=== PATIENT | male | born 1995 | race Caucasian/White ===

== ENCOUNTER 2021-01-20 15:10 | Emergency (ER) | payer OTHER, SELFPAY ==
--- NOTE | ~2021-01-20 | CT_ITS ---
EXAMINATION: CT HEAD WITHOUT CONTRAST CLINICAL INFORMATION: Right facial and right tongue numbness. Headache COMPARISON: None TECHNIQUE: Contiguous axial imaging was performed from the skull base to vertex without intravenous administration of contrast. This CT examination was performed using dose optimization techniques as appropriate, variously including the following: *Automated exposure control *Adjustment of mA and/or kV according to patient size (this includes techniques or standardized protocols for targeted exams where dose is matched to indication/reason for exam; i.e. extremities or head) *Use of iterative reconstruction technique DLP: 744 mGy-cm FINDINGS: There is no evidence of acute intracranial hemorrhage or territorial infarction. No abnormal mass effect or midline shift is seen. Hernandes to white matter differentiation is well preserved. No extra-axial fluid collections are identified. The ventricles are normal in size. There is no abnormal attenuation within the brain parenchyma. The osseous structures and soft tissues are normal. The mastoid air cells and visualized portions of the paranasal sinuses are well aerated. CT/CT head/brain wo con IMPRESSION: No acute intracranial process seen.
[2021-01-20 15:31] VITALS: BP 139/76; PULSE 96; RESP 18; TEMP 37.6; O2SAT 97; BMI 21.6
--- NOTE | 2021-01-20 17:18 | ECG_ITS ---
Test Reason : DIZZINESS Blood Pressure : / mmHG Vent. Rate : 080 BPM Atrial Rate : 080 BPM P-R Int : 152 ms QRS Dur : 078 ms QT Int : 350 ms P-R-T Axes : 069 051 048 degrees QTc Int : 403 ms Normal sinus rhythm with sinus arrhythmia Normal ECG No previous ECGs available Referred By: Rosa Samaniego Electronically Signed By:REJI DOCKERY
--- NOTE | 2021-01-20 17:22 | ED.GENADULT ---
HPI - General Adult General Chief complaint: Dental/Oral <DARCY Combs - Last Filed: 01/20/21 17:35> Stated complaint: dental numbness <DARCY Combs Last Filed: 01/20/21 17:35> Time Seen by Provider: 01/20/21 16:55 <DARCY Combs Last Filed: 01/20/21 17:35> Source: patient <DARCY Combs Last Filed: 01/20/21 17:35> Mode of arrival: ambulatory <DARCY Combs Last Filed: 01/20/21 17:35> History of Present Illness HPI narrative: 25-year-old male with past medical history of cigarette smoking presenting to the ED complaining of 2 weeks of decreased p.o. intake, headache, intermittent nausea, 1 episode of emesis, and now with right-sided ear muffled hearing, right-sided facial/lower lip and tongue numbness. Denies fever, chills, visual change/loss, CP/SOB, abdominal pain, recent travel, history of blood clots <DARCY Combs - Last Filed: 01/20/21 17:35> Onset (ago): week(s) <DARCY Combs Last Filed: 01/20/21 17:35> Related Data Home medications: Home Medications Medication Instructions Recorded Confirmed No Known Home Meds 01/20/21 01/20/21 <DARCY Combs - Last Filed: 01/20/21 17:35> Allergies/adverse reactions: Allergies Allergy/AdvReac Type Severity Reaction Status Date / Time No Known Allergies Allergy Verified 01/20/21 15:39 <DARCY Combs Last Filed: 01/20/21 17:35> Review of Systems Review of Systems: Constitutional: No Fever, + Chills, + Fatigue, No Malaise ENT/Mouth: + Hearing loss, No Ear Pain, No Nasal Congestion, No sore throat, No Rhinorrhea, No Swallowing Difficulty Eyes: No Eye Pain, No Redness, No Vision Changes Cardiovascular: No Chest Pain, No SOB, No Edema Respiratory: No Cough, No Dyspnea Gastrointestinal: + Nausea, + Vomiting, No Constipation, No Abdominal pain Musculoskeletal: No joint pain, No Myalgias, No Joint Swelling Skin: No Skin Lesions, No rash Neuro: No Weakness, + Numbness, + Paresthesias, No Loss of Consciousness, No Dizziness, + Headache <DARCY Combs - Last Filed: 01/20/21 17:35> Yes all other systems are reviewed and are negative <DARCY Combs - Last Filed: 01/20/21 17:35> Neurologic: Denies Abnormal speech present and Denies Sensory deficit (Neuro) <DARCY Combs - Last Filed: 01/20/21 17:35> [facility] Past Medical History Attestation statement: The following information was validated with the patient. <DARCY Combs - Last Filed: 01/20/21 17:35> Medical History: Medical History (Updated 01/20/21 @ 20:33 by DARCY Ken) No acute medical problems <DARCY Combs - Last Filed: 01/20/21 17:35> Surgical History: Surgical History (Updated 01/20/21 @ 15:38 by Fior Goss) No history of previous surgery <DARCY Combs - Last Filed: 01/20/21 17:35> Social History Social History: Social History Advance Directives: No Advance Directives Information Provided: No <DARCY Combs - Last Filed: 01/20/21 17:35> Physical Exam Vital Signs: Vital Signs: Last Vital Signs Temp 99.2 F 01/20/21 19:11 Pulse 76 01/20/21 19:11 Resp 17 01/20/21 19:11 BP 121/76 01/20/21 19:11 Pulse Ox 99 01/20/21 19:11 Body Mass Index 21.6 <DARCY Combs - Last Filed: 01/20/21 17:35> Vital Signs: Last Vital Signs Temp 99.2 F 01/20/21 19:11 Pulse 76 01/20/21 19:11 Resp 17 01/20/21 19:11 BP 121/76 01/20/21 19:11 Pulse Ox 99 01/20/21 19:11 Body Mass Index 21.6 <DARCY Ken - Last Filed: 01/20/21 20:35> Const: General: cooperative, healthy appearing, comfortable and no acute distress <Rosa Samaniego [place] - Last Filed: 01/20/21 17:35> Orientation/consciousness: patient oriented x3 <Rosa Samaniego [place] - Last Filed: 01/20/21 17:35> Limitations: no limitations <Rosa Samaniego [place] - Last Filed: 01/20/21 17:35> HENMT: Head: Yes normal to inspection and Yes atraumatic <Rosa Samaniego [place] - Last Filed: 01/20/21 17:35> Ears: hearing grossly normal bilaterally, external ears normal and TM's normal bilaterally <Rosa Samaniego [place] - Last Filed: 01/20/21 17:35> General nose exam: Normal external nose present <Rosa Samaniego [place] - Last Filed: 01/20/21 17:35> Face and sinus: Yes normal facial exam <Rosa Samaniego [place] - Last Filed: 01/20/21 17:35> Mouth: Normal oral and palatal mucosa present and tongue normal <Rosa Samaniego [place] - Last Filed: 01/20/21 17:35> Throat: Yes posterior oropharynx normal, Yes tonsils normal, Yes uvula midline, No uvula laterally displaced and No uvular edema <Rosa Samaniego [place] - Last Filed: 01/20/21 17:35> Eyes: General: appearance normal, both eyes and all related structures <Rosa Samaniego [place] - Last Filed: 01/20/21 17:35> Pupils: Equal, round and reactive pupils present <Rosa Samaniego [place] - Last Filed: 01/20/21 17:35> EOM: EOMs intact bilaterally <Rosa Samaniego [place] - Last Filed: 01/20/21 17:35> Neck: Neck: Yes normal visual inspection, Yes full ROM and Yes no lymphadenopathy <Rosa Samaniego [place] - Last Filed: 01/20/21 17:35> Resp: Effort & Inspection: normal respiratory effort <DARCY Combs - Last Filed: 01/20/21 17:35> Auscultation: clear to auscultation bilaterally, no rales and no wheezes <DARCY Combs - Last Filed: 01/20/21 17:35> Cardio: Rate: regular rate <Rosa Samaniego [place] - Last Filed: 01/20/21 17:35> Heart sounds: S1 normal heart sound present and S2 normal heart sound present <Rosa Danette [place] - Last Filed: 01/20/21 17:35> GI: Inspection: Yes normal to inspection <Rosa Danette [place] - Last Filed: 01/20/21 17:35> Palpation (GI): Soft to palpation, nontender, no guarding and not rigid <Rosa Danette [place] - Last Filed: 01/20/21 17:35> Skin: Rashes: no rashes <Rosa Danette [place] - Last Filed: 01/20/21 17:35> Wounds: no wounds <Rosa Danette PA - Last Filed: 01/20/21 17:35> Neuro: Other: Sensation intact to light touch to right-sided face and right tongue/lip however subjectively feels different <Rosa Danette [place] - Last Filed: 01/20/21 17:35> General: patient oriented x3, gait normal, tone normal, moves all extremities, no focal motor deficits and CN's II-XI intact bilaterally <Rosa Danette PA - Last Filed: 01/20/21 17:35> Cranial nerves: Yes Equal, round and reactive pupils present <Rosa Danette [place] - Last Filed: 01/20/21 17:35> Cognition (Neuro): normal cognition <Rosa Danette [place] - Last Filed: 01/20/21 17:35> Speech: No Abnormal speech present <Rosa Danette PA - Last Filed: 01/20/21 17:35> Gait exam (Neuro): Normal gait present <Rosa Danette [place] - Last Filed: 01/20/21 17:35> Motor exam (neuro): 5/5 motor strength present throughout, Pronator motor function not present, no tremor noted and Pronator motor function present <Rosa Danette PA - Last Filed: 01/20/21 17:35> Sensory Exam: No Sensory deficit (Neuro) <Rosa Samaniego PA - Last Filed: 01/20/21 17:35> Coordination: [id number] test normal <Rosa Samaniego PA - Last Filed: 01/20/21 17:35> Romberg Test: Negative <Rosa [facility] - Last Filed: 01/20/21 17:35> Extrem: General: Yes normal to inspection <DARCY Combs Last Filed: 01/20/21 17:35> Course Course Course Narrative: -1800- ED carre transferred to DARCY Henning pending labs, UA, CT head, and re-evaluation, anticipated DC home <DARCY Combs Last Filed: 01/20/21 17:35> CT scan is normal. Lab workup is unremarkable aside from CRP 4. Exam is non-focal and benign. Will give course of antibiotics for possible inner ear etiology and have him follow up with primary care provider. Patient and father agreeable with plan. Stable for discharge home. <DARCY Ken - Last Filed: 01/20/21 20:35> Medical Decision Making MDM Narrative Medical decision making narrative: 25-year-old male with past medical history of cigarette smoking presenting to the ED complaining of 2 weeks of decreased p.o. intake, headache, intermittent nausea, 1 episode of emesis, and now with right-sided ear muffled hearing, right-sided facial/lower lip and tongue numbness. On exam VSS, NAD, well appearing, no focal neuro deficits, sensation intact to light touch, subjectively feels different on right cheek/right-sided tongue and right lower lip. Concern for facial neuropathy vs paresthesia. Lower concern for CVA, TIA, CVT. No evidence of Medina's palsy on physical exam Plan: EKG, labs, UA, head CT, reassess <DARCY Combs - Last Filed: 01/20/21 17:35> Lab Data Result diagrams: : 01/20/21 17:43 01/20/21 17:43 <DARCY Combs Last Filed: 01/20/21 17:35> Labs: Lab Results 01/20/21 01/20/21 01/20/21 Range/Units 17:38 17:38 17:43 WBC 8.6 (4.8-10.8) X10*3/uL RBC 5.58 (4.60-5.80) X10*6/uL Hgb 17.3 (14.0-18.0) g/dl Hct 47.2 (42-52) % MCV 84.6 (80-98) fL MCH 31.0 (27.0-33.0) pg MCHC 36.7 H (31.0-36.0) g/dl RDW 11.7 (11.0-16.0) % Plt Count 230 (160-400) X10*3/uL MPV 8.7 L (9.4-12.4) fL Immature Gran % (Auto) 0.2 (0.0-0.4) % Neut % (Auto) 71.2 (45-73) % Lymph % (Auto) 14.8 L (20-40) % [place] % (Auto) 8.4 (2-11) % Eos % (Auto) 5.1 H (0-4) % Baso % (Auto) 0.3 (0-2) % Lymph # (Auto) 1.3 (1.2-4.9) X10*3/uL [place] # (Auto) 0.7 (0.1-1.2) X10*3/uL Eos # (Auto) 0.4 (0.0-0.4) X10*3/uL Baso # (Auto) 0.0 (0.0-0.2) X10*3/uL Abs Immat Gran (auto) 0.02 (0.00-0.03) X10*3/uL Absolute Neuts (auto) 6.1 (2.0-8.3) X10*3/uL Absolute Nucleated RBC 0.000 (0.0-0.012) X10*3/uL Nucleated RBC % (auto) 0.0 (0.0-0.2) /100WBC ESR (0-15) MM/HR PT (10.8-13.0) SEC INR (0.9-1.1) APTT (24.1-38.0) SEC Sodium (135-145) mmol/L Potassium (3.3-5.1) mmol/L Chloride (96-108) mmol/L Carbon Dioxide (22-29) mmol/L Anion Gap (12-20) BUN (9-16) mg/dL Creatinine (0.5-1.4) mg/dL Estim Creat Clear Calc Estimated GFR Random Glucose (60-115) mg/dL Calcium (8.4-10.2) mg/dL Magnesium (1.6-2.6) mg/dL Total Bilirubin (0.0-1.0) mg/dL Direct Bilirubin (0.0-0.5) mg/dL AST (5-37) U/L ALT (0-40) U/L Alkaline Phosphatase (39-117) U/L C-Reactive Protein (< or = 0.50) mg/dL Total Protein (6.5-8.0) g/dL Albumin (3.5-5.0) g/dL Urine Color Urine Appearance Urine pH (5.0-8.0) Ur Specific [place] (1.005-1.025) Urine Protein (NEG-TRACE) MG/DL Urine Glucose (UA) (NEG) MG/DL Urine Ketones (NEG) MG/DL Urine Blood (NEG) Urine Nitrite (NEG) Ur Leukocyte Esterase (NEG) Urine Opiates Screen Not Detected (Not Detect) Ur Barbiturates Screen Not Detected (Not Detect) Ur Phencyclidine Scrn Not Detected (Not Detect) Ur Amphetamines Screen Not Detected (Not Detect) U Benzodiazepines Scrn Not Detected (Not Detect) Urine Cocaine Screen Not Detected (Not Detect) U Marijuana (THC) Screen POSITIVE H (Not Detect) COVID-19 (LINDSEY) Negative (Negative) COVID-19 Clin Com See Note 01/20/21 01/20/21 01/20/21 Range/Units 17:43 17:43 17:43 WBC (4.8-10.8) X10*3/uL RBC (4.60-5.80) X10*6/uL Hgb (14.0-18.0) g/dl Hct (42-52) % MCV (80-98) fL MCH (27.0-33.0) pg MCHC (31.0-36.0) g/dl RDW (11.0-16.0) % Plt Count (160-400) X10*3/uL MPV (9.4-12.4) fL Immature Gran % (Auto) (0.0-0.4) % Neut % (Auto) (45-73) % Lymph % (Auto) (20-40) % [place] % (Auto) (2-11) % Eos % (Auto) (0-4) % Baso % (Auto) (0-2) % Lymph # (Auto) (1.2-4.9) X10*3/uL [place] # (Auto) (0.1-1.2) X10*3/uL Eos # (Auto) (0.0-0.4) X10*3/uL Baso # (Auto) (0.0-0.2) X10*3/uL Abs Immat Gran (auto) (0.00-0.03) X10*3/uL Absolute Neuts (auto) (2.0-8.3) X10*3/uL Absolute Nucleated RBC (0.0-0.012) X10*3/uL Nucleated RBC % (auto) (0.0-0.2) /100WBC ESR 7 (0-15) MM/HR PT 14.7 H (10.8-13.0) SEC INR 1.2 H (0.9-1.1) APTT 34.5 (24.1-38.0) SEC Sodium 138 (135-145) mmol/L Potassium 3.9 (3.3-5.1) mmol/L Chloride 99 (96-108) mmol/L Carbon Dioxide 28 (22-29) mmol/L Anion Gap 15 (12-20) BUN 17 H (9-16) mg/dL Creatinine 0.78 (0.5-1.4) mg/dL Estim Creat Clear Calc 121.7 Estimated GFR > 60 Random Glucose 98 (60-115) mg/dL Calcium 9.7 (8.4-10.2) mg/dL Magnesium 2.3 (1.6-2.6) mg/dL Total Bilirubin 0.9 (0.0-1.0) mg/dL Direct Bilirubin 0.3 (0.0-0.5) mg/dL AST 25 (5-37) U/L ALT 44 H (0-40) U/L Alkaline Phosphatase 95 (39-117) U/L C-Reactive Protein (< or = 0.50) mg/dL Total Protein 7.6 (6.5-8.0) g/dL Albumin 4.7 (3.5-5.0) g/dL Urine Color Urine Appearance Urine pH (5.0-8.0) Ur Specific [place] (1.005-1.025) Urine Protein (NEG-TRACE) MG/DL Urine Glucose (UA) (NEG) MG/DL Urine Ketones (NEG) MG/DL Urine Blood (NEG) Urine Nitrite (NEG) Ur Leukocyte Esterase (NEG) Urine Opiates Screen (Not Detect) Ur Barbiturates Screen (Not Detect) Ur Phencyclidine Scrn (Not Detect) Ur Amphetamines Screen (Not Detect) U Benzodiazepines Scrn (Not Detect) Urine Cocaine Screen (Not Detect) U Marijuana (THC) Screen (Not Detect) COVID-19 (LINDSEY) (Negative) COVID-19 Clin Com 01/20/21 01/20/21 Range/Units 17:43 19:14 WBC (4.8-10.8) X10*3/uL RBC (4.60-5.80) X10*6/uL Hgb (14.0-18.0) g/dl Hct (42-52) % MCV (80-98) fL MCH (27.0-33.0) pg MCHC (31.0-36.0) g/dl RDW (11.0-16.0) % Plt Count (160-400) X10*3/uL MPV (9.4-12.4) fL Immature Gran % (Auto) (0.0-0.4) % Neut % (Auto) (45-73) % Lymph % (Auto) (20-40) % [place] % (Auto) (2-11) % Eos % (Auto) (0-4) % Baso % (Auto) (0-2) % Lymph # (Auto) (1.2-4.9) X10*3/uL [place] # (Auto) (0.1-1.2) X10*3/uL Eos # (Auto) (0.0-0.4) X10*3/uL Baso # (Auto) (0.0-0.2) X10*3/uL Abs Immat Gran (auto) (0.00-0.03) X10*3/uL Absolute Neuts (auto) (2.0-8.3) X10*3/uL Absolute Nucleated RBC (0.0-0.012) X10*3/uL Nucleated RBC % (auto) (0.0-0.2) /100WBC ESR (0-15) MM/HR PT (10.8-13.0) SEC INR (0.9-1.1) APTT (24.1-38.0) SEC Sodium (135-145) mmol/L Potassium (3.3-5.1) mmol/L Chloride (96-108) mmol/L Carbon Dioxide (22-29) mmol/L Anion Gap (12-20) BUN (9-16) mg/dL Creatinine (0.5-1.4) mg/dL Estim Creat Clear Calc Estimated GFR Random Glucose (60-115) mg/dL Calcium (8.4-10.2) mg/dL Magnesium (1.6-2.6) mg/dL Total Bilirubin (0.0-1.0) mg/dL Direct Bilirubin (0.0-0.5) mg/dL AST (5-37) U/L ALT (0-40) U/L Alkaline Phosphatase (39-117) U/L C-Reactive Protein 4.30 H (< or = 0.50) mg/dL Total Protein (6.5-8.0) g/dL Albumin (3.5-5.0) g/dL Urine Color YELLOW Urine Appearance CLEAR Urine pH 7.0 (5.0-8.0) Ur Specific [place] 1.020 (1.005-1.025) Urine Protein TRACE (NEG-TRACE) MG/DL Urine Glucose (UA) NEG (NEG) MG/DL Urine Ketones NEG (NEG) MG/DL Urine Blood NEG (NEG) Urine Nitrite NEG (NEG) Ur Leukocyte Esterase NEG (NEG) Urine Opiates Screen (Not Detect) Ur Barbiturates Screen (Not Detect) Ur Phencyclidine Scrn (Not Detect) Ur Amphetamines Screen (Not Detect) U Benzodiazepines Scrn (Not Detect) Urine Cocaine Screen (Not Detect) U Marijuana (THC) Screen (Not Detect) COVID-19 (LINDSEY) (Negative) COVID-19 Clin Com <DARCY Combs - Last Filed: 01/20/21 17:35> Lab Results 01/20/21 01/20/21 01/20/21 Range/Units 17:38 17:38 17:43 WBC 8.6 (4.8-10.8) X10*3/uL RBC 5.58 (4.60-5.80) X10*6/uL Hgb 17.3 (14.0-18.0) g/dl Hct 47.2 (42-52) % MCV 84.6 (80-98) fL MCH 31.0 (27.0-33.0) pg MCHC 36.7 H (31.0-36.0) g/dl RDW 11.7 (11.0-16.0) % Plt Count 230 (160-400) X10*3/uL MPV 8.7 L (9.4-12.4) fL Immature Gran % (Auto) 0.2 (0.0-0.4) % Neut % (Auto) 71.2 (45-73) % Lymph % (Auto) 14.8 L (20-40) % [place] % (Auto) 8.4 (2-11) % Eos % (Auto) 5.1 H (0-4) % Baso % (Auto) 0.3 (0-2) % Lymph # (Auto) 1.3 (1.2-4.9) X10*3/uL [place] # (Auto) 0.7 (0.1-1.2) X10*3/uL Eos # (Auto) 0.4 (0.0-0.4) X10*3/uL Baso # (Auto) 0.0 (0.0-0.2) X10*3/uL Abs Immat Gran (auto) 0.02 (0.00-0.03) X10*3/uL Absolute Neuts (auto) 6.1 (2.0-8.3) X10*3/uL Absolute Nucleated RBC 0.000 (0.0-0.012) X10*3/uL Nucleated RBC % (auto) 0.0 (0.0-0.2) /100WBC ESR (0-15) MM/HR PT (10.8-13.0) SEC INR (0.9-1.1) APTT (24.1-38.0) SEC Sodium (135-145) mmol/L Potassium (3.3-5.1) mmol/L Chloride (96-108) mmol/L Carbon Dioxide (22-29) mmol/L Anion Gap (12-20) BUN (9-16) mg/dL Creatinine (0.5-1.4) mg/dL Estim Creat Clear Calc Estimated GFR Random Glucose (60-115) mg/dL Calcium (8.4-10.2) mg/dL Magnesium (1.6-2.6) mg/dL Total Bilirubin (0.0-1.0) mg/dL Direct Bilirubin (0.0-0.5) mg/dL AST (5-37) U/L ALT (0-40) U/L Alkaline Phosphatase (39-117) U/L C-Reactive Protein (< or = 0.50) mg/dL Total Protein (6.5-8.0) g/dL Albumin (3.5-5.0) g/dL Urine Color Urine Appearance Urine pH (5.0-8.0) Ur Specific [place] (1.005-1.025) Urine Protein (NEG-TRACE) MG/DL Urine Glucose (UA) (NEG) MG/DL Urine Ketones (NEG) MG/DL Urine Blood (NEG) Urine Nitrite (NEG) Ur Leukocyte Esterase (NEG) Urine Opiates Screen Not Detected (Not Detect) Ur Barbiturates Screen Not Detected (Not Detect) Ur Phencyclidine Scrn Not Detected (Not Detect) Ur Amphetamines Screen Not Detected (Not Detect) U Benzodiazepines Scrn Not Detected (Not Detect) Urine Cocaine Screen Not Detected (Not Detect) U Marijuana (THC) Screen POSITIVE H (Not Detect) COVID-19 (LINDSEY) Negative (Negative) COVID-19 Clin Com See Note 01/20/21 01/20/21 01/20/21 Range/Units 17:43 17:43 17:43 WBC (4.8-10.8) X10*3/uL RBC (4.60-5.80) X10*6/uL Hgb (14.0-18.0) g/dl Hct (42-52) % MCV (80-98) fL MCH (27.0-33.0) pg MCHC (31.0-36.0) g/dl RDW (11.0-16.0) % Plt Count (160-400) X10*3/uL MPV (9.4-12.4) fL Immature Gran % (Auto) (0.0-0.4) % Neut % (Auto) (45-73) % Lymph % (Auto) (20-40) % [place] % (Auto) (2-11) % Eos % (Auto) (0-4) % Baso % (Auto) (0-2) % Lymph # (Auto) (1.2-4.9) X10*3/uL [place] # (Auto) (0.1-1.2) X10*3/uL Eos # (Auto) (0.0-0.4) X10*3/uL Baso # (Auto) (0.0-0.2) X10*3/uL Abs Immat Gran (auto) (0.00-0.03) X10*3/uL Absolute Neuts (auto) (2.0-8.3) X10*3/uL Absolute Nucleated RBC (0.0-0.012) X10*3/uL Nucleated RBC % (auto) (0.0-0.2) /100WBC ESR 7 (0-15) MM/HR PT 14.7 H (10.8-13.0) SEC INR 1.2 H (0.9-1.1) APTT 34.5 (24.1-38.0) SEC Sodium 138 (135-145) mmol/L Potassium 3.9 (3.3-5.1) mmol/L Chloride 99 (96-108) mmol/L Carbon Dioxide 28 (22-29) mmol/L Anion Gap 15 (12-20) BUN 17 H (9-16) mg/dL Creatinine 0.78 (0.5-1.4) mg/dL Estim Creat Clear Calc 121.7 Estimated GFR > 60 Random Glucose 98 (60-115) mg/dL Calcium 9.7 (8.4-10.2) mg/dL Magnesium 2.3 (1.6-2.6) mg/dL Total Bilirubin 0.9 (0.0-1.0) mg/dL Direct Bilirubin 0.3 (0.0-0.5) mg/dL AST 25 (5-37) U/L ALT 44 H (0-40) U/L Alkaline Phosphatase 95 (39-117) U/L C-Reactive Protein (< or = 0.50) mg/dL Total Protein 7.6 (6.5-8.0) g/dL Albumin 4.7 (3.5-5.0) g/dL Urine Color Urine Appearance Urine pH (5.0-8.0) Ur Specific [place] (1.005-1.025) Urine Protein (NEG-TRACE) MG/DL Urine Glucose (UA) (NEG) MG/DL Urine Ketones (NEG) MG/DL Urine Blood (NEG) Urine Nitrite (NEG) Ur Leukocyte Esterase (NEG) Urine Opiates Screen (Not Detect) Ur Barbiturates Screen (Not Detect) Ur Phencyclidine Scrn (Not Detect) Ur Amphetamines Screen (Not Detect) U Benzodiazepines Scrn (Not Detect) Urine Cocaine Screen (Not Detect) U Marijuana (THC) Screen (Not Detect) COVID-19 (LINDSEY) (Negative) COVID-19 Clin Com 01/20/21 01/20/21 Range/Units 17:43 19:14 WBC (4.8-10.8) X10*3/uL RBC (4.60-5.80) X10*6/uL Hgb (14.0-18.0) g/dl Hct (42-52) % MCV (80-98) fL MCH (27.0-33.0) pg MCHC (31.0-36.0) g/dl RDW (11.0-16.0) % Plt Count (160-400) X10*3/uL MPV (9.4-12.4) fL Immature Gran % (Auto) (0.0-0.4) % Neut % (Auto) (45-73) % Lymph % (Auto) (20-40) % [place] % (Auto) (2-11) % Eos % (Auto) (0-4) % Baso % (Auto) (0-2) % Lymph # (Auto) (1.2-4.9) X10*3/uL [place] # (Auto) (0.1-1.2) X10*3/uL Eos # (Auto) (0.0-0.4) X10*3/uL Baso # (Auto) (0.0-0.2) X10*3/uL Abs Immat Gran (auto) (0.00-0.03) X10*3/uL Absolute Neuts (auto) (2.0-8.3) X10*3/uL Absolute Nucleated RBC (0.0-0.012) X10*3/uL Nucleated RBC % (auto) (0.0-0.2) /100WBC ESR (0-15) MM/HR PT (10.8-13.0) SEC INR (0.9-1.1) APTT (24.1-38.0) SEC Sodium (135-145) mmol/L Potassium (3.3-5.1) mmol/L Chloride (96-108) mmol/L Carbon Dioxide (22-29) mmol/L Anion Gap (12-20) BUN (9-16) mg/dL Creatinine (0.5-1.4) mg/dL Estim Creat Clear Calc Estimated GFR Random Glucose (60-115) mg/dL Calcium (8.4-10.2) mg/dL Magnesium (1.6-2.6) mg/dL Total Bilirubin (0.0-1.0) mg/dL Direct Bilirubin (0.0-0.5) mg/dL AST (5-37) U/L ALT (0-40) U/L Alkaline Phosphatase (39-117) U/L C-Reactive Protein 4.30 H (< or = 0.50) mg/dL Total Protein (6.5-8.0) g/dL Albumin (3.5-5.0) g/dL Urine Color YELLOW Urine Appearance CLEAR Urine pH 7.0 (5.0-8.0) Ur Specific [place] 1.020 (1.005-1.025) Urine Protein TRACE (NEG-TRACE) MG/DL Urine Glucose (UA) NEG (NEG) MG/DL Urine Ketones NEG (NEG) MG/DL Urine Blood NEG (NEG) Urine Nitrite NEG (NEG) Ur Leukocyte Esterase NEG (NEG) Urine Opiates Screen (Not Detect) Ur Barbiturates Screen (Not Detect) Ur Phencyclidine Scrn (Not Detect) Ur Amphetamines Screen (Not Detect) U Benzodiazepines Scrn (Not Detect) Urine Cocaine Screen (Not Detect) U Marijuana (THC) Screen (Not Detect) COVID-19 ([facility]) (Negative) COVID-19 Clin Com <DARCY Ken - Last Filed: 01/20/21 20:35> Discharge Plan Discharge Clinical Impression: Facial paresthesia <DARCY Combs - Last Filed: 01/20/21 17:35> Patient Disposition: Home, Self-Care <DARCY Combs - Last Filed: 01/20/21 17:35> Instructions: Paresthesia (ED) <DARCY Combs - Last Filed: 01/20/21 17:35> Additional Instructions: Your CT scan was normal. Your COVID test was negative. Your blood workup was unremarkable. Recommend trial of antibiotics for 1 week to see if symptoms improve. Follow up with your doctor. If your symptoms worsen or any new or concerning symptoms arise call 911 or come back to the ER for further evaluation. <DARCY Combs - Last Filed: 01/20/21 17:35> Prescriptions: No Action No Known Home Meds RF: 0 <DARCY Combs - Last Filed: 01/20/21 17:35>
[2021-01-20 17:49] LABS: MANUAL DIFF FLAG NO
[2021-01-20 17:51] LABS: Basophils Percent Auto 0.3 % (0-2); Eosinophils Absolute Auto 0.4 X10*3/uL (0.0-0.4); Eosinophils Percent Auto 5.1 % (0-4); Hematocrit 47.2 % (42-52); Hemoglobin 17.3 g/dl (14.0-18.0); Imm Gran Abs Auto 0.02 X10*3/uL (0.00-0.03); Imm Gran Pct Auto 0.2 % (0.0-0.4); Lymphocytes Absolute Auto 1.3 X10*3/uL (1.2-4.9); Lymphocytes Percent Auto 14.8 % (20-40); Mean Corpuscular HGB Conc 36.7 g/dl (31.0-36.0); Mean Corpuscular Volume 84.6 fL (80-98); Mean Platelet Volume 8.7 fL (9.4-12.4); Monocytes Absolute Auto 0.7 X10*3/uL (0.1-1.2); Monocytes Percent Auto 8.4 % (2-11); Neutrophils Absolute Auto 6.1 X10*3/uL (2.0-8.3); Neutrophils Percent Auto 71.2 % (45-73); Platelet Count 230 X10*3/uL (160-400); Red Blood Count 5.58 X10*6/uL (4.60-5.80); Red Cell Distribution Width 11.7 % (11.0-16.0); White Blood Count 8.6 X10*3/uL (4.8-10.8)
[2021-01-20] MEDS: ondansetron HCL 4 MG/2 ML VIAL IVPUSH (17:53)
[2021-01-20] MEDS: 0.9 % Sodium Chloride 1,000 ML 999 ML IVCONT (17:53)
[2021-01-20 17:58] LABS: INTERNATIONAL NORM RATIO 1.2 (0.9-1.1); Prothrombin Time 14.7 SEC (10.8-13.0)
[2021-01-20 17:59] LABS: Amphetamine Screen Urine Not Detected (Not Detect); Barbiturates, Urine Not Detected (Not Detect); Benzodiazepines Screen Urine Not Detected (Not Detect); Cannabinoid Screen Urine POSITIVE (Not Detect); Cocaine Screen Urine Not Detected (Not Detect); Opiate Screen Urine Not Detected (Not Detect); Phencyclidine Screen Urine Not Detected (Not Detect)
[2021-01-20 18:01] LABS: Partial Thromboplastin Time 34.5 SEC (24.1-38.0)
[2021-01-20 18:06] VITALS: BP 119/71; BP 120/69; PULSE 64; PULSE 78; RESP 18; TEMP 36.9; O2SAT 98
[2021-01-20 18:07] VITALS: BP 122/71; BP 136/79; PULSE 83; PULSE 92
[2021-01-20 18:09] LABS: COVID-19 Test Negative (Negative)
[2021-01-20 18:17] LABS: Alanine Aminotransferase 44 U/L (0-40); Albumin Level 4.7 g/dL (3.5-5.0); Alkaline Phosphatase 95 U/L (39-117); Anion Gap 15 (12-20); Aspartate Amino Transferase 25 U/L (5-37); Bilirubin Direct 0.3 mg/dL (0.0-0.5); Bilirubin Total 0.9 mg/dL (0.0-1.0); Blood Urea Nitrogen 17 mg/dL (9-16); Calcium 9.7 mg/dL (8.4-10.2); Carbon Dioxide 28 mmol/L (22-29); Chloride 99 mmol/L (96-108); Creatinine Clr Calc Pharmacy 121.7; Estimated Glomerular Filt Rate > 60; Glucose Random 98 mg/dL (60-115); Magnesium 2.3 mg/dL (1.6-2.6); Potassium 3.9 mmol/L (3.3-5.1); Sodium 138 mmol/L (135-145); Total Protein 7.6 g/dL (6.5-8.0)
[2021-01-20 18:35] LABS: Erythrocyte Sedimentation Rate 7 MM/HR (0-15)
[2021-01-20 19:11] VITALS: BP 121/76; PULSE 76; RESP 17; TEMP 37.3; O2SAT 99
[2021-01-20 19:20] LABS: Glucose Urine UA NEG (NEG); Leukocyte Esterase Urine NEG (NEG); Nitrite Urine NEG (NEG); Urine Blood NEG (NEG); Urine Ketones NEG (NEG); Urine Protein TRACE MG/DL (NEG-TRACE)
[2021-01-20 19:22] LABS: Appearance Urine CLEAR; Color Urine YELLOW
[2021-01-20] MEDS: Amoxicillin/Potassium Clav 875 MG TABLET PO (20:50)
== END 2021-01-20 20:51 | disposition home or self-care (01) ==
PROVIDERS: Physician Assistant; Emergency Provider Emergency Medicine
DX: R20.2 Paresthesia of skin (principal); Z20.822 Contact with and (suspected) exposure to COVID-19; Z87.891 Personal history of nicotine dependence
CPT/HCPCS: 36415; 70450; 80048; 80076; 80307; 81003; 83735; 85025; 85610; 85652; 85730; 86140; 87635; 93005; 96361; 96374; 99284; 99285; J2405